=== PATIENT | female | born 1950 | race Caucasian/White ===

== ENCOUNTER → 2017-01-14 | Outpatient (CLI) | payer BC, MEDICARE ==
[~2017-01-14] MED LIST: DIABETA 5MG5 MG/TAB PO; GLUCOPHAGE500 MG/TAB PO; LEVAQUIN 750MG750 M1 PO; NORVASC 10MG10 MG PO; NORVASC 5MG5 MG/TAB PO; PRINIVIL40 MG PO; WELLBUTRIN 100100 MG PO
== END ==
LOC: COL.CARD 12:56
DX: Z51.11 Encounter for antineoplastic chemotherapy (principal); I25.10 Atherosclerotic heart disease of native coronary artery without angina pectoris; I10 Essential (primary) hypertension; I28.8 Other diseases of pulmonary vessels; E11.9 Type 2 diabetes mellitus without complications

== ENCOUNTER 2017-05-28 13:17 | Emergency (ER) | payer BC, MEDICARE ==
[~2017-05-28] VITALS: Ht 157.5 cm; Wt 58.2 kg
[~2017-05-28 13:17] MED LIST changes: -LEVAQUIN 750MG750 M1 PO
[2017-05-28 13:20] VITALS: TEMP 99.7
[2017-05-28 15:34] LABS: HEMOGLOBIN 13.1 g/dl (12.5-16.0); MEAN CELL VOLUME 86 fl (80.0-100.0); MEAN CORPUSCULAR HEMOGLOBIN 29 pg (27.0-31.0); MEAN CORPUSCULAR HGB CONC 34 g/dl (33.0-37.0); MEAN PLATELET VOLUME 8.4 fl (7.4-10.4); PLATELET COUNT 250 K/mm3 (130-400); RED BLOOD COUNT 4.52 M/mm3 (4.10-5.30); REDCELL DISTRIBUTION WIDTH-CV 13.3 % (11.5-14.5)
[2017-05-28 15:36] LABS: ADD PATHOLOGY DIFF REVIEW NO; WHITE BLOOD COUNT 25.6 K/mm3 (4.8-10.8)
[2017-05-28 15:53] LABS: ADJUSTED CALCIUM 9.5 mg/dL (8.4-10.2); BILIRUBIN,TOTAL 0.6 mg/dL (0.0-1.0); CALCIUM 9.5 mg/dL (8.4-10.2); CREATININE, serum 0.88 mg/dL (0.52-1.25); POTASSIUM 4.3 mmol/L (3.4-5.0); TOTAL PROTEIN 6.7 gm/dL (6.4-8.2)
[2017-05-28 16:07] LABS: BAND 16 % (0-10); EOSINOPHIL 1 % (0-4); NEUTROPHILS 67 % (42.0-75.2); TOTAL CELLS COUNTED 100
[2017-05-28 16:08] LABS: ANISOCYTOSIS 1+; PLATELET ESTIMATE NORMAL (NORMAL)
[2017-05-28] MEDS ORDERED: LEVAQUIN 750MG750 M1 PO (16:24)
[2017-05-28 16:36] VITALS: BP 118/70; PULSE 93
== END 2017-05-28 16:37 | disposition home or self-care (01) ==
LOC: COL.ER 13:17
PROVIDERS: Nurse Practitioner
DX: J18.1 Lobar pneumonia, unspecified organism (principal); I10 Essential (primary) hypertension; E11.9 Type 2 diabetes mellitus without complications; F17.210 Nicotine dependence, cigarettes, uncomplicated; Z79.84 Long term (current) use of oral hypoglycemic drugs

== ENCOUNTER 2021-04-22 12:51 | Emergency (ER) | payer MEDICARE ==
[~2021-04-22] VITALS: Ht 157.5 cm; Wt 57.3 kg
[~2021-04-22 12:51] MED LIST changes: +LEVAQUIN 750MG750 M1 PO
[2021-04-22 13:05] VITALS: PULSE 73; TEMP 98.2
[2021-04-22 14:26] VITALS: BP 167/92
== END 2021-04-22 14:26 | disposition home or self-care (01) ==
LOC: COL.ER 12:51
DX: S51.812A Laceration without foreign body of left forearm, initial encounter (principal); I10 Essential (primary) hypertension; E11.9 Type 2 diabetes mellitus without complications; F17.210 Nicotine dependence, cigarettes, uncomplicated; Z23 Encounter for immunization; Z79.899 Other long term (current) drug therapy; Z79.84 Long term (current) use of oral hypoglycemic drugs; W26.8XXA Contact with other sharp object(s), not elsewhere classified, initial encounter; Y93.K1 Activity, walking an animal